=== PATIENT | male | born 2000 | race Caucasian/White ===

== ENCOUNTER 2024-08-12 00:04 | Emergency (ER) | payer MEDICAID, SELFPAY ==
[2024-08-12 00:15] VITALS: BP 141/84; PULSE 80; RESP 20; TEMP 36.7; O2SAT 99; BMI 18.2
--- NOTE | 2024-08-12 00:26 | EDNOTE_ITS ---
ED Dental RME/HPI General Chief complaint: Dental/Oral/Throat Stated complaint: TOOTHACHE Time Seen by Provider: 08/12/24 00:22 Source: patient and family Arrival date/time: 08/12/24 00:04 23-year-old male presents to ED with a complaint of dental pain that has been ongoing for quite some time. Patient is presently awaiting an appointment to have 4 of his molars removed. Mode of arrival: ambulatory Limitations: no limitations RME / HPI MD Complaint: tooth pain Teeth map: 2 1. 2. 3. 4. Related Data Previous Rx's ?Medication ?Instructions ?Recorded naproxen 500 mg tablet 500 mg PO BID #30 tabs 08/12 penicillin V potassium 500 mg 500 mg PO QID 10 days #4 0 tabs 08/12/24 tablet Allergies Allergy/AdvReac Type Severity Reaction Status Date / Time No Known Allergies Allergy Verified 08/12/24 00:09 Review of Systems Constitutional Constitutional: Reports system reviewed and no additional complaints, except as documented Eyes Eyes: Reports system reviewed and no additional complaints, except as documented, Denies dry eyes, Denies exophthalmos and Reports floaters Cardiovascular Cardiovascular: Denies chest pain with activity and Denies claudication Past Medical History Social History SMOKING STATUS: Current every day smoker ED Exam General Limitations: Present no limitations General appearance: Present alert and in no apparent distress Head Head exam: Present atraumatic Eye Eye exam: Present normal appearance, PERRL and EOMI ENT ENT exam: Present normal exam, normal oropharynx and mucous membranes moist Expanded ENT Exam Teeth exam: Present dental caries (There are numerous dental caries in the mouth.) Neck Neck exam: Present normal inspection, full ROM and trachea midline Chest Chest inspection: Present normal inspection and symmetric chest wall rise Extremities Exam Extremities exam: Present normal inspection and full ROM Back Exam Back exam: Present normal inspection and full ROM Neurological Exam Neurological exam: Present alert, oriented X3 and CN II-XII intact Psychiatric Psychiatric exam: Present normal affect and normal mood Skin Skin exam: Present warm, dry, intact and normal color Course Course Course Narrative: Patient will have Toradol 30 mg for pain and discomfort Quality Measures none Orders Category Date Time Status Ketorolac Inj [Toradol Inj] Med 08/12/24 00:26 Discontinued 30 mg IM X1 ONE Vital Signs Vital signs: Vital Signs Temperature 98.1 F 08/12/24 00:15 Pulse Rate 80 05/15/25 00:15 Respiratory Rate 20 08/12/24 00:15 Blood Pressure 141/84 H 08/12/24 00:15 Pulse Oximetry (%) 99 08/12/24 00:15 Oxygen Delivery Method Room Air 08/12/24 00:15 Pulse ox room air 99% Dental / Oral MDM Narrative MDM Narrative:: Patient will have 30 mg of Toradol and I will send him home with a prescription for penicillin 500 mg to be consumed 1 p.o. every 6 x 10 days. Will also get a prescription for Naprosyn 500 mg to be consumed 1 p.o. every 12 as needed pain. Patient is to the dentist as discussed. If he is worse he may return here. Patient data External records reviewed:: Other (specify) Clinical information provided by:: none Social determinants that could affect healthcare access:: none Patient has the following chronic illnesses:: N/A How is presenting disease/condition affected by chronic disease/condition?: no chronic disease Evaluation data The following diagnostics were reviewed and interpreted by me:: other (specify) (Clinical acumen) Lab and/or radiology exams considered but not ordered:: N/A Interpretation Summary: N/A Medications / Prescriptions Medications or Prescriptions considered but not ordered:: N/A Medication administrations:: Medication Administration History Discontinued Medications Ketorolac Tromethamine (Ketorolac Inj 60 Mg/2 Ml Vial) 30 mg IM X1 ONE Stop: 08/12/24 00:27 Last Admin: 08/12/24 00:34 Dose: 30 mg Documented By: AC N/A Consultations Consultation(s) initiated? (list below): No Diagnosis Dental Differential Diagnosis: dental caries, toothache, dental abscess and fracture of tooth Most likely diagnosis given after review of the tests above:: N/A Admission Indicated Admission indicated?: not indicated Explain why admission is indicated or not indicated:: N/A Admission Request Was there a request for admission?: No Disposition Plan Disposition Plan: Discharge Discharge Attestation Discharge Attestation: The patient and all family members were given an opportunity to ask questions and understood the discharge instructions. Discharge instructions specifically effects, indications for sooner follow up or return to the emergency department, and the expected course of current diagnosis. Patient condition: Stable Discharge Plan Plan Patient Disposition: HOME (Self Care) Discharge Disposition comment: Patient discharged in no apparent distress Patient condition on transfer: Stable Prescriptions/Referrals Prescriptions/Med Rec: New penicillin V potassium 500 mg tablet 500 mg PO QID 10 Days Qty: 40 0RF naproxen 500 mg tablet 500 mg PO BID MDD 1000 MG Qty: 30 0RF Problem List Clinical Impression: Dental caries, Toothache Patient/Caregiver Discharge Instructions Education Materials: ED Dental Cavity Print Language: Latvian PA/VIRTUAL REALITY SPECIALIST Supervising Physician PA/VIRTUAL REALITY SPECIALIST Supervising Physician: ARETM
[2024-08-12] MEDS: KETOROLAC INJ 60 MG/2 ML VIAL 30 MG IM (00:34)
== END 2024-08-12 01:10 | disposition home or self-care (01) ==
LOC: SERX 02:21
PROVIDERS: Emergency Provider Emergency Medicine; PCP Family Medicine
DX: K02.9 Dental caries, unspecified (principal)
CPT/HCPCS: 96372; 99283; J1885